=== PATIENT | female | born 1950 | race African-American/Black ===

== ENCOUNTER 2019-09-03 10:57 | Emergency (ER) | payer OTHER, BC ==
[2019-09-03] MEDS ORDERED: CYCLOBENZAPRINE HCL 10 MG TABLET PO ONE (12:27)
[2019-09-03] MEDS ORDERED: ACETAMINOPHEN 325 MG TABLET PO ONE (12:27)
--- NOTE | 2019-09-03 12:28 | ER Document Report ---
ED Medical Screen (RME) - General Chief Complaint: Neck and Upper Back Pain Stated Complaint: NECK AND UPPER BACK PAIN Time Seen by Provider: 09/03/19 12:17 Primary Care Provider: SUSANNE ROJAS MD [Primary Care Provider] - Follow up as needed Mode of Arrival: Ambulatory Information source: Patient Notes: 69-year-old female with history of breast cancer 17 years ago presents emergency department with complaint of neck pain. Reports she strained herself getting into the truck on Wednesday. Reports pain since that time. Patient is also patting her chest saying it hurts in her chest tube. Reports the chest pain comes and goes with left arm numbness. Reports she has had this for many years.. Denies fever vomiting diarrhea. Reports neck hurts when she moves. reports her chest is hurting because she is having so much pain. Respiratory rate even unlabored. I have greeted and performed a rapid initial assessment of this patient. A comprehensive ED assessment and evaluation of the patient, analysis of test results and completion of the medical decision making process will be conducted by additional ED providers. Dictation of this chart was performed using voice recognition software; therefore, there may be some unintended grammatical errors. TRAVEL OUTSIDE OF THE [place] IN LAST 30 DAYS: No - Related Data Allergies/Adverse Reactions: aspirin [Aspirin] Allergy (Severe, Verified 09/03/19 12:17) Anaphylaxis Sulfa (Sulfonamide Antibiotics) Allergy (Intermediate, Verified 09/03/19 12:17) Generalized rash Home Medications: omeprazole Past Medical History - Social History Chew tobacco use (# tins/day): No Frequency of alcohol use: None Drug Abuse: None - Past Medical History Cardiac Medical History: Reports: Hx Hypertension Denies: Hx Coronary Artery Disease, Hx Heart Attack Pulmonary Medical History: Denies: Hx Asthma, Hx Bronchitis, Hx COPD, Hx Pneumonia Neurological Medical History: Denies: Hx Cerebrovascular Accident, Hx Seizures Musculoskeltal Medical History: Denies Hx Arthritis Past Surgical History: Denies: Hx Hysterectomy - Immunizations Hx Diphtheria, Pertussis, Tetanus Vaccination: Yes Physical Exam - Vital signs Vitals: Temp Pulse Resp BP Pulse Ox 98.1 F 72 20 147/70 H 99 09/03/19 11:10 09/03/19 11:10 09/03/19 11:10 09/03/19 11:10 09/03/19 11:10 Course - Vital Signs Vital signs: Temp Pulse Resp BP Pulse Ox 98.1 F 72 20 147/70 H 99 09/03/19 12:17 09/03/19 11:10 09/03/19 12:17 09/03/19 11:10 09/03/19 12:17 Doctor's Discharge - Discharge Referrals: SUSANNE ROJAS MD [Primary Care Provider] - Follow up as needed
[2019-09-03 14:17] LABS: ABSOLUTE BASOPHILS # (AUTO) 0.1 10^3/uL (0.0-0.2); ABSOLUTE EOSINOPHILS # (AUTO) 0.1 10^3/uL (0.0-0.6); ABSOLUTE LYMPHOCYTES (AUTO) 3.2 10^3/uL (0.5-4.7); ABSOLUTE MONOCYTES (AUTO) 0.5 10^3/uL (0.1-1.4); ABSOLUTE NEUT (AUTO) 4.7 10^3/uL (1.7-8.2); BASOPHILS % (AUTO) 0.6 % (0-2); EOSINOPHILS % (AUTO) 1.1 % (0-6); HEMATOCRIT 39.3 % (36.0-47.0); HEMOGLOBIN 12.9 g/dL (12.0-15.5); MEAN CORPUSCULAR HEMOGLOBIN 26.1 pg (27.0-33.4); MEAN CORPUSCULAR HGB CONC 32.9 g/dL (32.0-36.0); MEAN CORPUSCULAR VOLUME 79 fl (80-97); MONOCYTES % (AUTO) 6.4 % (3-13); PLATELET COUNT 289 10^3/uL (150-450); RED BLOOD COUNT 4.95 10^6/uL (3.72-5.28); SEGMENTED NEUTROPHILS % (AUTO) 54.9 % (42-78); TOTAL CELLS COUNTED % (AUTO) 100 %; WHITE BLOOD COUNT 8.6 10^3/uL (4.0-10.5)
--- NOTE | 2019-09-03 14:21 | RADIOLOGY REPORT (SQ) ---
EXAM DESCRIPTION: CHEST 2 VIEWS COMPLETED DATE/TIME: 09/03/2019 2:06 pm REASON FOR STUDY: neck and chest pain COMPARISON: None. NUMBER OF VIEWS: Two view. TECHNIQUE: Frontal and lateral radiographic views of the chest acquired. LIMITATIONS: None. FINDINGS: LUNGS AND PLEURA: No opacities, masses or pneumothorax. No pleural effusion. MEDIASTINUM AND HILAR STRUCTURES: No masses. No contour abnormalities. HEART AND VASCULAR STRUCTURES: Heart enlarged without failure. Aorta normal for age. BONES: No acute findings. HARDWARE: None in the chest. OTHER: No other significant finding. IMPRESSION: CARDIAC ENLARGEMENT WITHOUT FAILURE. TECHNICAL DOCUMENTATION: JOB ID: [id number] [employer]- All Rights Reserved Reading location - IP/workstation name: [email or web address]
[2019-09-03 14:35] LABS: ALBUMIN 4.1 g/dL (3.5-5.0); ALKALINE PHOSPHATASE 93 U/L (38-126); ANION GAP 9 (5-19); ASPARTATE AMINO TRANSFERASE 22 U/L (14-36); BILIRUBIN,DIRECT 0.1 mg/dL (0.0-0.4); BILIRUBIN,TOTAL 0.4 mg/dL (0.2-1.3); BLOOD UREA NITROGEN 12 mg/dL (7-20); CALCIUM 9.6 mg/dL (8.4-10.2); CARBON DIOXIDE 32 mmol/L (22-30); CHLORIDE 102 mmol/L (98-107); GLUCOSE 74 mg/dL (75-110); POTASSIUM 3.6 mmol/L (3.6-5.0); TOTAL PROTEIN 7.4 g/dL (6.3-8.2)
--- NOTE | 2019-09-03 15:46 | EKG REPORT ---
SEVERITY:- BORDERLINE ECG - SINUS RHYTHM BORDERLINE T ABNORMALITIES, ANTERIOR LEADS : Confirmed by: Sg Bryant MD 03-Sep-2019 15:45:31
[2019-09-03] MEDS ORDERED: HYDROCODONE/ACETAMINOPHEN 5-325 MG (6 TAB/ER DISP) PO PRN (18:05)
[2019-09-03] MEDS ORDERED: HYDROCODONE/ACETAMINOPHEN 5-325 MG TABLET PO ONE (18:07)
--- NOTE | 2019-09-03 18:13 | ER Document Report ---
HPI - HPI Time Seen by Provider: 09/03/19 12:17 Pain Level: 4 Notes: RME HPI: 69-year-old female with history of breast cancer 17 years ago presents emergency department with complaint of neck pain. Reports she strained herself getting into the truck on Wednesday. Reports pain since that time. Patient is also patting her chest saying it hurts in her chest tube. Reports the chest pain comes and goes with left arm numbness. Reports she has had this for many years.. Denies fever vomiting diarrhea. Reports neck hurts when she moves. reports her chest is hurting because she is having so much pain. Respiratory rate even unlabored. - CONSTITUTIONAL Constitutional: DENIES: Fever, Chills - REPRODUCTIVE Reproductive: DENIES: : Past Medical History - General Information source: Patient - Social History Smoking Status: Never Smoker Chew tobacco use (# tins/day): No Frequency of alcohol use: None Drug Abuse: None Family History: Reviewed & Not Pertinent Patient has suicidal ideation: No Patient has homicidal ideation: No - Past Medical History Cardiac Medical History: Reports: Hx Hypertension Denies: Hx Coronary Artery Disease, Hx Heart Attack Pulmonary Medical History: Denies: Hx Asthma, Hx Bronchitis, Hx COPD, Hx Pneumonia Neurological Medical History: Denies: Hx Cerebrovascular Accident, Hx Seizures Musculoskeletal Medical History: Denies Hx Arthritis Surgical Hx: Negative Past Surgical History: Denies: Hx Hysterectomy - Immunizations Hx Diphtheria, Pertussis, Tetanus Vaccination: Yes Vertical Provider Document - CONSTITUTIONAL Notes: PHYSICAL EXAMINATION: GENERAL: Well-appearing, well-nourished and in no acute distress. HEAD: Atraumatic, normocephalic. EYES: Pupils equal round and reactive to light, extraocular movements intact, conjunctiva are normal. ENT: Nares patent, oropharynx clear without exudates. Moist mucous membranes. NECK: Normal range of motion, supple without lymphadenopathy LUNGS: Breath sounds clear to auscultation bilaterally and equal. No wheezes rales or rhonchi. HEART: Regular rate and rhythm without murmurs ABDOMEN: Soft, nontender, nondistended abdomen. No guarding, no rebound. No masses appreciated. Female : deferred Musculoskeletal: Normal range of motion, no pitting or edema. No cyanosis. Tenderness to palpation to posterior cervical area that radiates to the left scapular area, increased with any movement. No vertebral tenderness, step-off or deformity. NEUROLOGICAL: Cranial nerves grossly intact. Normal speech, normal gait. Normal sensory, motor exams PSYCH: Normal mood, normal affect. SKIN: Warm, Dry, normal turgor, no rashes or lesions noted. - INFECTION CONTROL TRAVEL OUTSIDE OF THE [place] IN LAST 30 DAYS: No Course - Re-evaluation Re-evalutation: Laboratory 09/03/19 09/03/19 09/03/19 13:57 13:57 13:57 WBC 8.6 RBC 4.95 Hgb 12.9 Hct 39.3 MCV 79 L MCH 26.1 L MCHC 32.9 RDW 15.0 H Plt Count 289 Lymph % (Auto) 37.0 [place] % (Auto) 6.4 Eos % (Auto) 1.1 Baso % (Auto) 0.6 Absolute Neuts (auto) 4.7 Absolute Lymphs (auto) 3.2 Absolute Monos (auto) 0.5 Absolute Eos (auto) 0.1 Absolute Basos (auto) 0.1 Seg Neutrophils % 54.9 Sodium 142.6 Potassium 3.6 Chloride 102 Carbon Dioxide 32 H Anion Gap 9 BUN 12 Creatinine 0.56 Est GFR ( Amer) > 60 Est GFR (MDRD) Non-Af > 60 Glucose 74 L Calcium 9.6 Total Bilirubin 0.4 Direct Bilirubin 0.1 Neonat Total Bilirubin Not Reportable Neonat Direct Bilirubin Not Reportable Neonat Indirect Bili Not Reportable AST 22 ALT 20 Alkaline Phosphatase 93 Troponin I < 0.012 Total Protein 7.4 Albumin 4.1 09/03/19 17:00 WBC RBC Hgb Hct MCV MCH MCHC RDW Plt Count Lymph % (Auto) [place] % (Auto) Eos % (Auto) Baso % (Auto) Absolute Neuts (auto) Absolute Lymphs (auto) Absolute Monos (auto) Absolute Eos (auto) Absolute Basos (auto) Seg Neutrophils % Sodium Potassium Chloride Carbon Dioxide Anion Gap BUN Creatinine Est GFR ( Amer) Est GFR (MDRD) Non-Af Glucose Calcium Total Bilirubin Direct Bilirubin Neonat Total Bilirubin Neonat Direct Bilirubin Neonat Indirect Bili AST ALT Alkaline Phosphatase Troponin I < 0.012 Total Protein Albumin Chest X-Ray 09/03/19 12:26 IMPRESSION: CARDIAC ENLARGEMENT WITHOUT FAILURE. Patient was initially seen by provider in triage who initiated her work-up. Patient has had a clean cardiac work-up today. Labs were unremarkable. Chest x-ray just showed some cardiomegaly without CHF. EKG showed a sinus rhythm, rate of 64, QTc 442, no ST segment elevations or depressions to suggest ischemia, no previous EKG on file for comparison. Patient has neck and shoulder pain consistent with musculoskeletal strain versus torticollis. She will be started on pain medications and muscle relaxers. She will have close follow-up with her PCP. Patient given ED return precautions, patient verbalized understanding and agreement with same. - Vital Signs Vital signs: Temp Pulse Resp BP Pulse Ox 98.1 F 72 20 147/70 H 99 09/03/19 12:17 09/03/19 11:10 09/03/19 12:17 09/03/19 11:10 09/03/19 12:17 - Laboratory Result Diagrams: 09/03/19 13:57 09/03/19 13:57 Laboratory results interpreted by me: 09/03/19 09/03/19 13:57 13:57 MCV 79 L MCH 26.1 L RDW 15.0 H Carbon Dioxide 32 H Glucose 74 L Discharge - Discharge Clinical Impression: Torticollis Condition: Stable Disposition: HOME, SELF-CARE Additional Instructions: Muscle Strain You have strained a muscle -- torn the fibers within the muscle. This often occurs with strenuous exertion, or during an injury that suddenly stretches the muscle. The seriousness of a strain varies. Some strains heal within days, others cause problems for months. X-rays cannot show a muscle strain. X-rays are taken only if symptoms suggest that a fracture could be present. The usual treatment of a muscle strain is rest and ice packs. Sometimes, a sling, splint, or crutches may be necessary to rest the muscle. The muscle can be used again once pain subsides. Severe strains require a special exercise and stretching program to prevent permanent stiffness and disability. Your doctor will advise you if this will be necessary. Call the doctor immediately if pain or swelling becomes severe, or if num bness or discoloration develop. Call your doctor on Wednesday if not improving. Take medications as prescribed. Return to the ED with any new or worsening symptoms. Prescriptions: Hydrocodone Bit/Acetaminophen [Hydrocodon-Acetaminophen 5-325] 1 each PO Q4H #10 tablet Methocarbamol [Robaxin 750 mg Tablet] 750 mg PO Q6H #30 tablet Referrals: SUSANNE ROJAS MD [Primary Care Provider] - Follow up as needed
[2019-09-03 18:26] VITALS: BP 156/78
== END 2019-09-03 18:35 | disposition home or self-care (01) ==
LOC: ER 10:57
DX: M43.6 Torticollis (principal); M54.2 Cervicalgia; R20.0 Anesthesia of skin; R07.9 Chest pain, unspecified; X58.XXXA Exposure to other specified factors, initial encounter; I10 Essential (primary) hypertension; I51.7 Cardiomegaly
CPT/HCPCS: 36415; 71046; 80053; 84484; 85025; 93005; 93010; 99284

== ENCOUNTER 2020-06-27 06:50 | Day surgery (SDC) | payer MEDICARE, BC ==
[~2020-06-27 06:50] MED LIST: DORZOLAMIDE HCL 2%/TIMOLOL MALEAT 0.5% OPH SOLN 10 ML OD PRN; KETOROLAC TROMETHAMINE 0.45% 4 DROP/0.4 ML DROPERETTE OD PRN; PREDNISOLONE ACETATE 1% OPH SUSP 5 ML OD PRN
[2020-06-27] MEDS ORDERED: EPINEPHRINE INJ/PF 1 MG/1 ML AMPULE ONE (06:55)
[2020-06-27] MEDS ORDERED: CHONDR SU A NA/HYALUR INTRAOC KIT (SURGICARE) ONE (06:55)
[2020-06-27] MEDS ORDERED: LIDOCAINE 1%/PHENYLEPHRINE 1.5% 1 ML VIAL ONE (06:55)
[2020-06-27] MEDS: CYCLOPENTOLATE 0.2%/PHENYLEPHRINE 1% OPH SOLN 2 ML OD PRN ×3 (07:06→07:30)
[2020-06-27] MEDS ORDERED: MIDAZOLAM 2 MG/2 ML INJ ONE (07:06)
[2020-06-27] MEDS ORDERED: ONDANSETRON HCL INJ/PF 4 MG/2 ML SDV ONE (07:06)
[2020-06-27] MEDS: TETRACAINE HCL 0.5% OPH SOLN 4 ML OD PRN ×3 (07:06→07:51)
[2020-06-27] MEDS: TROPICAMIDE 1% OPH SOLN 15 ML OD PRN ×3 (07:06→07:30)
[2020-06-27] MEDS: BESIFLOXACIN HCL 0.6% OPH SUSP 5 ML BOTTLE OD PRN ×3 (07:06→08:12)
[2020-06-27] MEDS ORDERED: FENTANYL CITRATE INJ/PF 100 MCG/2 ML AMPUL ONE (07:07)
--- NOTE | 2020-06-27 13:08 | Operative Report ---
Operative Report-[facility] Operative Report: DATE OF SURGERY: 06/27/2020 PREOPERATIVE DIAGNOSIS: Cataract, right eye POSTOPERATIVE DIAGNOSIS: Cataract, right eye OPERATION: Cataract extraction with insertion of an IOL of the right eye. Intraocular Lens Model: [21.5 diopter SN 60 WF] Patient underwent surgery for difficulty reading road signs SURGEON: Tommy Mercer MD ANESTHESIA: Topical PROCEDURE: After obtaining appropriate consent, the patient's right eye was prepped and draped in a sterile fashion as well as the surgeon in the sterile manner and cataract surgery was started. First a paracentesis blade was used to make a side-port incision. Viscoelastic was used to inflate the anterior chamber. Next a 2.4 mm incision was made with a 2.4 mm blade, clear corneal temporarily. A continuous capsulorrhexis was made using a cystotome and Utrata forceps. Following this hydrodissection was carried out to make the juan fully loose and mobile and it was rotated. Following this, a divide and conquer technique was used to phacoemulsify the juan. The remaining cortex was removed with an irrigation/aspiration. Provisc was instilled into the capsular bag to inflate the bag. The intraocular lens was placed. The remaining viscoelastic material was removed with irrigation/aspiration. Following this, the incision was found to be watertight. Besivance and Cosopt was instilled into the eye and a protective shield was placed over the eye. The patient was reurned to the postoperative recovery in a stable condition.
== END 2020-06-27 08:46 | disposition home or self-care (01) ==
LOC: SC 06:50
PROVIDERS: ATTEND Internal Medicine
DX: E11.36 Type 2 diabetes mellitus with diabetic cataract (principal); H25.13 Age-related nuclear cataract, bilateral; I10 Essential (primary) hypertension; H35.371 Puckering of macula, right eye; Z79.4 Long term (current) use of insulin; Z79.899 Other long term (current) drug therapy; Z79.84 Long term (current) use of oral hypoglycemic drugs; Z92.3 Personal history of irradiation; Z92.21 Personal history of antineoplastic chemotherapy; Z80.3 Family history of malignant neoplasm of breast; Z88.6 Allergy status to analgesic agent; Z88.2 Allergy status to sulfonamides
CPT/HCPCS: 82962; 66984; V2632; J2250; J3490 ×2; A9270; J0171; J3010; J2405; 142

== ENCOUNTER → 2020-07-18 | Day surgery (SDC) | payer MEDICARE, BC ==
[~2020-07-18] MED LIST changes: +CHONDR SU A NA/HYALUR INTRAOC KIT (SURGICARE) ONE; -DORZOLAMIDE HCL 2%/TIMOLOL MALEAT 0.5% OPH SOLN 10 ML OD PRN; +DORZOLAMIDE HCL 2%/TIMOLOL MALEAT 0.5% OPH SOLN 10 ML OS PRN; +EPINEPHRINE INJ/PF 1 MG/1 ML AMPULE ONE; -KETOROLAC TROMETHAMINE 0.45% 4 DROP/0.4 ML DROPERETTE OD PRN; +KETOROLAC TROMETHAMINE 0.45% 4 DROP/0.4 ML DROPERETTE OS PRN; +LIDOCAINE 1%/PHENYLEPHRINE 1.5% 1 ML VIAL ONE; +MIDAZOLAM 2 MG/2 ML INJ ONE; -PREDNISOLONE ACETATE 1% OPH SUSP 5 ML OD PRN
[2020-07-18] MEDS: CYCLOPENTOLATE 0.2%/PHENYLEPHRINE 1% OPH SOLN 2 ML OS PRN ×5 (09:31→10:20)
[2020-07-18] MEDS: TROPICAMIDE 1% OPH SOLN 15 ML OS PRN ×3 (09:31→09:51)
[2020-07-18] MEDS: BESIFLOXACIN HCL 0.6% OPH SUSP 5 ML BOTTLE OS PRN ×4 (09:31→10:20)
[2020-07-18] MEDS: TETRACAINE HCL 0.5% OPH SOLN 4 ML OS PRN ×3 (09:32→10:02)
[2020-07-18] MEDS: PREDNISOLONE ACETATE 1% OPH SUSP 5 ML OS PRN ×2 (10:20)
--- NOTE | 2020-07-19 07:45 | Operative Report ---
Operative Report-[facility] Operative Report: DATE OF SURGERY: 07/18/2020 PREOPERATIVE DIAGNOSIS: Cataracts, left eye POSTOPERATIVE DIAGNOSIS: Cataract, left eye OPERATION: Cataract extraction with insertion of an IOL of the left eye. Intraocular Lens Model: [21.5 diopter SN 60 WF] Patient underwent surgery for difficulty seeing small print SURGEON: Tommy Mercer MD ANESTHESIA: Topical PROCEDURE: After obtaining appropriate consent, the patient's left eye was prepped and draped in a sterile fashion as well as the surgeon in the sterile manner and cataract surgery was started. First a paracentesis blade was used to make a side-port incision. Viscoelastic was used to inflate the anterior chamber. Next a 2.4 mm incision was made with a 2.4 mm blade, clear corneal temporarily. A continuous capsulorrhexis was made using a cystotome and Utrata forceps. Following this hydrodissection was carried out to make the lens fully loose and mobile and it was rotated 90 degrees. Following this, a divide and conquer technique was used to phacoemulsify the lens. The remaining cortex was removed with an irrigation/aspiration. Provisc was instilled into the capsular bag to inflate the bag.The intraocular lens was placed. The remaining viscoelastic material was removed with irrigation/aspiration. Following this, the incision was found to be watertight. Besivance and Cosopt was instilled into the eye and a protective shield was placed over the eye. The patient was returned to the postoperative recovery in a stable condition.
== END ==
LOC: SC 08:37
PROVIDERS: ATTEND Internal Medicine
DX: H25.12 Age-related nuclear cataract, left eye (principal); H35.371 Puckering of macula, right eye; Z96.1 Presence of intraocular lens; E11.36 Type 2 diabetes mellitus with diabetic cataract; I10 Essential (primary) hypertension; Z79.4 Long term (current) use of insulin
CPT/HCPCS: 66984; 82962; V2632; J2250; J3490 ×2; A9270; J0171; 142